=== PATIENT | male | born 1960 | race Caucasian/White ===

== ENCOUNTER 2024-09-19 13:48 | Outpatient (AMB) | payer OTHER, SELFPAY ==
--- NOTE | 2024-09-19 13:54 | MHC.OFFVIS ---
Vital Signs 09/19/24 14:01 Height 5 ft 9 in Weight 246 lb 6 oz BMI 36.4 Intake Visit Reasons: inguinal hernia Intake Note: This patient presents for inguinal hernia assessment. Pt c/o; reports bulge, reports pain, left groin, reports he went to Urgent care about 4-5 months ago to get evaluated for his hernia. Medical Services Manager Required: No Accompanied by: Self / Same As Patient Allergies No Known Allergies Allergy (Verified 09/19/24 14:03) Medication List - Last Reconciled 09/19/24 by Ludwin Tian MD levothyroxine 175 mcg PO DAILY lisinopril 10 mg PO DAILY HPI HPI inguinal hernia: Details: 64-year-old male with obesity, referred for a left inguinal hernia. He says that he has had this mass on his left groin all the way to the scrotum on and off. He had noticed this about 4 months ago but this has been prominent periodically especially when he is standing up. He says that often times reduces when he is lying down in bed He describes discomfort in the area. He has not seen a primary care physician and long time as he has primary care physician retired last year. He went to an urgent care center about 2 months ago and he was referred to me He denies GI complaints. He used to be a smoker but he said he quit about 2 months ago. He is hypertensive as well. [facility] Medical History (Updated 09/19/24 @ 14:12 by Ludwin Tian MD) Morbid obesity Left inguinal hernia Surgical History (Updated 09/19/24 @ 14:03 by GT Ybarra) History of surgical procedure Family History Maternal Uncle Bone cancer Sister Throat cancer Social History Alcohol intake: current Alcohol intake frequency: holidays/special occasions only Patient Tobacco Use Status: Former Tobacco user Review of Systems Const Denies chills and Denies fever(s) Card Denies chest pain, Denies dyspnea and Denies dyspnea on exertion Resp Denies cough, Denies dyspnea and Denies dyspnea on exertion GI Denies hematochezia and Denies change in bowel habits Denies hematuria and Denies difficulty urinating Musc Denies back pain and Denies limited range of motion Neuro Denies focal weakness and Denies convulsions Psych Denies depression and Denies mood swings Physical Exam Vital Signs: BMI result Body Mass Index 36.4 Const Other: Obese General: comfortable and no acute distress Orientation/consciousness: patient oriented x3 Neck Neck: Yes no lymphadenopathy Resp Auscultation: clear to auscultation bilaterally Cardio Rhythm: regular rhythm GI Other: Left inguinoscrotal hernia, partially reducible, nontender, large Palpation (GI): Soft to palpation, nontender and no guarding Neuro General: patient oriented x3 Assessment & Plan Assessment & Plan (1) Left inguinal hernia: Code(s): K40.90 - Unilateral inguinal hernia, without obstruction or gangrene, not specified as recurrent Category: Medical Plan: He has a large left inguino scrotal hernia. He does state that this has been bothering him. He wants to proceed with repair. I had a long discussion with the above about the technique of repair with mesh placement. I reviewed the risks including but not limited to bleeding, infections, injury to other organs including bowel, vas deferens, the testicle, blood clots, pneumonia, recurrence, hematoma, as well as benefits and alternatives. I also reviewed with him what to expect postoperatively He has not seen a primary care physician in over a year. I will arrange for him to be seen by 1 prior to the surgery. I am also scheduling him for a CT scan of the abdomen and pelvis to image this left groin in view of the large size. He seems to understand the plan well. Orders: Orders CT abdomen pelvis wo IV con 09/19/24 K40.90 - Unilateral inguinal hernia, without obstruction or gangrene, not specified as recurrent Coding Level of Care Code New Pt Level 3 (90862) Diagnoses Left inguinal hernia K40.90
[2024-09-19 14:01] VITALS: BMI 36.4
== END 2024-09-19 14:09 | disposition home or self-care (01) ==
LOC: HO.HGS 13:53
PROVIDERS: Visit Provider Surgery
DX: K40.90 Unilateral inguinal hernia, without obstruction or gangrene, not specified as recurrent (principal)
CPT/HCPCS: 99203

== ENCOUNTER 2024-10-03 08:36 | Outpatient (AMB) | payer OTHER, SELFPAY ==
--- NOTE | 2024-10-03 08:50 | A.OFFPC_ITS ---
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 Patient has old PCP is from [facility] who retired in 12/05/2023. Patient reports that he has history of hypertension and hypothyroidism. He has not had blood work done in a while. He has enough medications for both the conditions. He was seen in the surgical office for left abdominal pain and was found to have an inguinal hernia. A CT scan has been scheduled which has not been done yet. Patient is scheduled to have an inguinal hernia repair in the near future. No date for surgery has been set. Patient would like a screening colonoscopy. [facility] Medical History (Updated 10/03/24 @ 09:14 by Tray Schumacher MD) Acquired hypothyroidism Essential hypertension Morbid obesity Left inguinal hernia Surgical History (Updated 09/19/24 @ 14:03 by GT Ybarra) History of surgical procedure Family History (Updated 10/03/24 @ 08:54 by GT Bernard) Maternal Uncle Bone cancer Sister Throat cancer Social History Housing: Condominium Alcohol intake: current Alcohol intake frequency: holidays/special occasions only Alcohol type: beer Patient Tobacco Use Status: Former Tobacco user Tobacco use type: Cigarette e-Cigarette/Vaping Use: Never Used Second Hand Smoke Exposure: No service: No Current occupational status: employed Current occupational exposures/hazards: No Cognitive needs: No Hearing needs: No Vision needs: Yes Questionnaire PHQ-9 Over the last 2 weeks, how often have you been bothered by any of the following problems? 1. Little interest or pleasure in doing things: not at all 2. Feeling down, depressed, or hopeless: not at all 3. Trouble falling or staying asleep, or sleeping too much: not at all 4. Feeling tired or having little energy: not at all 5. Poor appetite or overeating: not at all 6. Feeling bad about yourself - or that you are a failure or have let yourself or your family down: not at all 7. Trouble concentrating on things, such as reading the newspaper or watching television: not at all 8. Moving or speaking so slowly that other people could have noticed. Or the opposite - being so fidgety or restless that you have been moving around a lot more than usual: not at all 9. Thoughts that you would be better off or of hurting yourself in some way: not at all Total score: 0 Depression Screening Interpretation: Negative Depression Screening Done: Yes Source: Developed by Drs. Ede Snowden, Cathleen Briscoe, Eder Long and colleagues, with an educational mj from [employer]. Thrive Questionnaire Date Thrive assessed: 09/26/24 I am a: Patient What is your living situation today?: I have a steady place to live Within the past 12 months, did the food you bought not last and you didn't have the money to get more?: Never true Within the past 12 months, did you worry whether your food would run out before you got money to buy more?: Never true Do you have trouble paying for medicines?: No Do you have trouble getting transportation to medical appointments?: No Do you have trouble paying your heating and electricity bill?: No Do you have trouble taking care of your child, family member or friend?: No Do you have trouble with day-to-day activities such as bathing, preparing meals, shopping, managing finances, etc.?: No Are you currently unemployed and looking for a job?: No Are you interested in more education?: No Please select the resources that you would like help with: None Currently or been in a relationship where the following occur: No concerns reported THRIVE Score: 0 AUDIT C Alcohol Use Questionnaire (AUDIT-C) 1. How often do you have a drink containing alcohol?: Monthly or less 2. How many drinks containing alcohol do you have on a typical day when you are drinking?: 1 or 2 3. How often do you have six or more drinks on one occasion?: Less than monthly Total Score: 2 ALMITA-7 AMB Questionnaire ALMITA-7 Date ALMITA - 7 assessed: 10/03/24 Feeling nervous, anxious, or on edge: 0 = Not at all Not being able to stop or control worryin = Not at all Worrying too much about different things: 0 = Not at all Trouble relaxin = Not at all Being so restless that it is hard to sit still: 0 = Not at all Becoming easily annoyed or irritable: 0 = Not at all Feeling afraid as if something awful might happen: 0 = Not at all Total ALMITA-7 score (0-4 normal; 5-9 mild; 10-14 moderate; 15-21 severe): 0 Source: Developed by Drs. Ede Snowden, Cathleen Briscoe, Eder Long and colleagues, with an educational mj from [employer]. Physical exam (Primary Care) Vital Signs: Last Vital Signs Pulse 78 10/03/24 08:51 BP 128/86 10/03/24 08:51 Pulse Ox 98 10/03/24 08:51 Oxygen Delivery Method Room Air 10/03/24 08:51 BMI result Body Mass Index 36.0 Tobacco/Smoking Status: Tobacco use Status Tobacco use date assessed 10/03/24 10/03/24 08:56 Patient Tobacco Use Status Former Tobacco user 10/03/24 08:54 Tobacco use type Cigarette 10/03/24 08:54 e-Cigarette/Vaping Use Never Used 10/03/24 08:56 PHQ-9: PHQ-9 Score PHQ-9: Total score 0 10/03/24 08:56 Depression Screening Interpretation: Negative Thrive Assessment: Date of Thrive Assessment Date Thrive assessed 09/26/24 10/03/24 08:50 Currently or been in a relationship where the following occur: No concerns reported Const General: cooperative and healthy appearing Nutritional Appearance: well nourished Orientation/consciousness: patient oriented x3 Limitations: no limitations HENMT Head: Yes normal to inspection Eyes General: appearance normal, both eyes and all related structures Neck Neck: Yes normal visual inspection Chest Chest palpation & inspection: normal palpation of entire chest wall Resp Effort & Inspection: normal respiratory effort Neuro General: patient oriented x3 Office Procedures Flu Questionnaire Does the patient have a severe egg allergy?: No Does the patient have severe life threatening allergies?: No Does the patient have a fever or illness today?: No Has the patient ever had Guillain-[place] Syndrome?: No Has the patient ever had any past reaction to a flu shot?: No Immunizations Fluarix Triv [id number] (PF) 45 mcg (15 mcg x 3)/0.5 mL IM syringe Performing Provider: Tray Schumacher MD [facility] Administered by: GT Jarvis on 10/03/24 09:09 Dose Route Admin Location Dispensed Lot Number Expiration Date [place] Grocery Clerk Marking 0.5 mL IM Left Deltoid 0.5 mL [id number] 05/15/25 [id number] [employer] VIS Given Date VIS Provided VIS Publication Date 10/03/24 Single Vaccine 21 Eligibility Eligibility Date Funding Source Not [facility] Eligible 10/03/24 Private Coding Level of Care Code New Pt Level 4 (90295) Complex EM visit Add On G2211 Diagnoses Morbid obesity E66.01 Essential hypertension I10 Acquired hypothyroidism E03.9 Left inguinal hernia K40.90 Assessment & Plan Assessment & Plan (1) Morbid obesity: Code(s): E66.01 - Morbid (severe) obesity due to excess calories Category: Medical Plan: BMI is 36. (2) Essential hypertension: Code(s): I10 - Essential (primary) hypertension Category: Medical Plan: Blood pressure is in range. Continue medications at same dosage. Blood work has been up ordered. Will call with the results. (3) Acquired hypothyroidism: Code(s): E03.9 - Hypothyroidism, unspecified Category: Medical Plan: TSH has been ordered. Based on the results, Synthroid dosage will be adjusted. (4) Left inguinal hernia: Code(s): K40.90 - Unilateral inguinal hernia, without obstruction or gangrene, not specified as recurrent Category: Medical Plan: Patient already has an appointment with the surgeon for an elective surgery. A screening colonoscopy has been ordered. Plan PSA levels will be checked. Orders: Orders Influenza [id number] Immunization Today Z23 - Encounter for immunization
[2024-10-03 08:51] VITALS: BP 128/86; PULSE 78; O2SAT 98; BMI 36.0
== END 2024-10-03 09:11 | disposition home or self-care (01) ==
PROVIDERS: Visit Provider Internal Medicine
DX: I10 Essential (primary) hypertension (principal); E66.01 Morbid (severe) obesity due to excess calories; Z68.36 Body mass index [BMI] 36.0-36.9, adult; E03.9 Hypothyroidism, unspecified; K40.90 Unilateral inguinal hernia, without obstruction or gangrene, not specified as recurrent

== ENCOUNTER → 2024-10-03 08:36 | Outpatient (BNVA) | payer OTHER, SELFPAY | PROVIDERS: Visit Provider Internal Medicine | DX: E66.01 Morbid (severe) obesity due to excess calories (principal); Z68.36 Body mass index [BMI] 36.0-36.9, adult; I10 Essential (primary) hypertension; E03.9 Hypothyroidism, unspecified; K40.90 Unilateral inguinal hernia, without obstruction or gangrene, not specified as recurrent; Z23 Encounter for immunization | CPT/HCPCS: 90471; 90656; 96127 ==

== ENCOUNTER 2024-10-06 10:14 | Outpatient (REF) | payer OTHER, SELFPAY ==
[2024-10-06 13:14] LABS: Appearance Urine Clear; Color Urine Yellow; Glucose Urine UA Negative (Negative); Leukocyte Esterase Urine Negative (Negative); Nitrite Urine Negative (Negative); PH 5.5 (5.0-9.0); Urine Blood Negative (Negative); Urine Ketones Negative (Negative); Urine Protein Negative (Neg-Trace)
[2024-10-06 13:20] LABS: Hemoglobin 14.8 g/dl (14.0-18.0); Mean Corpuscular HGB Conc 34.4 g/dl (31.0-36.0); Mean Corpuscular Hemoglobin 31.6 pg (27.0-33.0); Mean Corpuscular Volume 91.9 fL (80.0-98.0); Platelet Count 328 X10*3/uL (160-400); Red Blood Count 4.68 X10*6/uL (4.60-5.80); Red Cell Distribution Width 13.6 % (11.0-16.0); White Blood Count 9.3 X10*3/uL (4.8-10.8)
[2024-10-06 13:52] LABS: Prostate Specific Antigen Scr 1.37 ng/mL (<0.05-4.0)
[2024-10-06 14:20] LABS: Alanine Aminotransferase 21 U/L (0-40); Albumin Level 3.9 g/dL (3.5-5.0); Anion Gap 12 (12-20); Aspartate Amino Transferase 26 U/L (5-37); Bilirubin Direct 0.1 mg/dL (0.0-0.5); Bilirubin Total 0.4 mg/dL (0.0-1.0); Blood Urea Nitrogen 8 mg/dL (9-16); Calcium 9.5 mg/dL (8.4-10.2); Carbon Dioxide 25 mmol/L (22-29); Chloride 100 mmol/L (96-108); Cholesterol 168 mg/dL (<200); Estimated Glomerular Filt Rate > 60; Glucose Random 94 mg/dL (60-115); HDL Cholesterol 41 mg/dL (>40); LDL Cholesterol Calculated 98 mg/dL (<100); Potassium 4.6 mmol/L (3.3-5.1); Sodium 132 mmol/L (135-145); Total Protein 7.2 g/dL (6.5-8.0); Triglycerides 146 mg/dL (<150)
[2024-10-06 14:24] LABS: Thyroid Stimulating Hormone 6.36 uIU/mL (0.32-4.0)
[2024-10-06 14:35] LABS: Alkaline Phosphatase 66 U/L (39-117)
== END 2024-10-06 10:15 | disposition home or self-care (01) ==
LOC: HO.HMGCLDS 10:14
PROVIDERS: PCP Internal Medicine; Visit Provider Internal Medicine
DX: I10 Essential (primary) hypertension (principal); E03.9 Hypothyroidism, unspecified; Z12.5 Encounter for screening for malignant neoplasm of prostate
CPT/HCPCS: 36415; 80048; 80061; 80076; 81003; 84153; 84443; 85027

== ENCOUNTER 2024-11-14 16:13 | Outpatient (REF) | payer OTHER, SELFPAY ==
--- NOTE | ~2024-11-14 | CT_ITS ---
CLINICAL HISTORY: K40.90 - Unilateral inguinal hernia, without obstruction or gangrene, no... CT abdomen and pelvis without contrast Comparison: None Findings: No consolidation or effusion. The unenhanced liver, spleen, adrenal glands and pancreas are unremarkable. Several gallstones layer dependently within the gallbladder. There are multiple exophytic renal cysts present, the largest on the left measuring up to 4.2 cm. No urinary calculus or obstructive uropathy. Normal appendix. There is diverticulosis without diverticulitis. A segment distal descending colon and sigmoid colon extend into a large left inguinal hernia. No current evidence of incarceration/obstruction. The prostate gland is mildly enlarged. The bladder is decompressed. Moderate diffuse atherosclerotic disease. Impression: Large left inguinal hernia containing descending colon and sigmoid colon. Diverticulosis without diverticulitis. Cholelithiasis without cholecystitis. Atherosclerosis. Additional incidental findings. This document has been electronically signed by: Antonio Sharp MD on 11/16/2024 06:11:30
== END 2024-11-14 16:14 | disposition home or self-care (01) ==
LOC: HO.CT 16:13
PROVIDERS: PCP Internal Medicine; Visit Provider Surgery
DX: K40.90 Unilateral inguinal hernia, without obstruction or gangrene, not specified as recurrent (principal)
CPT/HCPCS: 74176

== ENCOUNTER → 2024-11-14 16:15 | Outpatient (BNV) | payer OTHER, SELFPAY | PROVIDERS: PCP Internal Medicine; Visit Provider Radiology Vascular & Interventional Radiology | DX: K57.30 Diverticulosis of large intestine without perforation or abscess without bleeding (principal); K80.80 Other cholelithiasis without obstruction | CPT/HCPCS: 74176 ==

== ENCOUNTER 2024-11-29 07:03 | Day surgery (SDC) | payer OTHER, SELFPAY ==
[2024-11-25 12:31] VITALS: BMI 36.3
--- NOTE | 2024-11-25 12:41 | P.CONAN_ITS ---
Documented by User: Helen Guerrero NP 11/25/24 12:42 HPI - Anesthesia Eval Consult details Narrative: 64yo M for Left Chronically incarcerated Hernia Inguinal Reducible with mesh PMFSH Active Problems Active Problems: All Active Problems Acquired hypothyroidism (Acute) Essential hypertension (Acute) Morbid obesity (Acute) Left inguinal hernia (Acute) Past Medical History Medical History Acquired hypothyroidism Essential hypertension Morbid obesity Left inguinal hernia Family History Family History Maternal Uncle Bone cancer Sister Throat cancer Surgical History Surgical History H/O arthroscopy of right knee History of surgical procedure Social History Social History Housing: [facility] Alcohol intake: current Alcohol intake frequency: holidays/special occasions only Alcohol type: beer Patient Tobacco Use Status: Former Tobacco user Tobacco use type: Cigarette e-Cigarette/Vaping Use: Never Used Second Hand Smoke Exposure: No Use of substances other than those prescribed or required for medical reasons: No Are you DNR?: No Advance Directives: No Advance Directives Information Provided: Yes Nutrition Risks: No Nutritional Risk Poor oral hygiene: No service: No Current occupational status: employed Current occupational exposures/hazards: No Cognitive needs: No Hearing needs: No Vision needs: Yes Meds Allergies Allergy/AdvReac Type Severity Reaction Status Date / Time No Known Allergies Allergy Verified 10/03/24 09:07 Home Medications ?Medication ?Instructions ?Recorded ?Confirmed ?Last Taken ?Type lisinopril 10 mg tablet 10 mg PO DAILY 09/19/24 11/29/24 11/28/24 History Exam Height,Weight and Vital Signs: Height 5 ft 9 in Weight 111.584 kg Pertinent Lab Results Pertinent Lab Results: Laboratory Tests 10/06/24 10:20 WBC 9.3 Hgb 14.8 Hct 43.0 Plt Count 328 Sodium 132 L Potassium 4.6 Chloride 100 Carbon Dioxide 25 BUN 8 L Creatinine 0.80 Assessment and Plan Assessment Anesthesia Assessment: Chart Reviewed Documented by User: Jesse Henning MD 11/29/24 08:30 PMFSH Past Medical History Medical History Acquired hypothyroidism Essential hypertension Morbid obesity Left inguinal hernia Family History Family History Maternal Uncle Bone cancer Sister Throat cancer Family history of problems with anesthesia: No Surgical History Surgical History H/O arthroscopy of right knee History of surgical procedure History of Problems with Anesthesia: No Social History [facility] Alcohol intake: current Alcohol intake frequency: holidays/special occasions only Alcohol type: beer Patient Tobacco Use Status: Former Tobacco user Tobacco use type: Cigarette e-Cigarette/Vaping Use: Never Used Second Hand Smoke Exposure: No Use of substances other than those prescribed or required for medical reasons: No Are you DNR?: No Advance Directives: No Advance Directives Information Provided: Yes Nutrition Risks: No Nutritional Risk Poor oral hygiene: No service: No Current occupational status: employed Current occupational exposures/hazards: No Cognitive needs: No Hearing needs: No Vision needs: Yes Meds Allergies Allergy/AdvReac Type Severity Reaction Status Date / Time No Known Allergies Allergy Verified 10/03/24 09:07 Home Medications ?Medication ?Instructions ?Recorded ?Confirmed ?Last Taken ?Type lisinopril 10 mg tablet 10 mg PO DAILY 09/19/24 11/29/24 11/28/24 History Assessment and Plan Assessment Anesthesia Assessment: Anesthesia Plan Discussed Final Anesthetic Review Family History of Problems with Anesthesia: No History of Problems with Anesthesia: No NPO: Yes ASA Class: II Final Preanesthetic Review: No Changes in Pt Med Stat, Meds/Allgs Chart Re viewed, Consent Obtained/Reviewed and Anes Risks/Benef Reviewed Patient Risk: Low Procedure Risk: Low Anesthetic Plan Anesthetic Plan: GA Disposition: Standard PACU
[2024-11-29] VITALS (7 sets, daily range): BP systolic 107–129; BP diastolic 67–84; PULSE 62–80; RESP 13–16; TEMP 36.4–36.7; O2SAT 94–97; BMI 35.4
[2024-11-29] MEDS: Lactated Ringers 1,000 ML 100 ML IVCONT (08:30)
--- NOTE | 2024-11-29 08:41 | MHC.SHP ---
Pre-Procedural Eval Section A - 24 Hr Update-Section A only Date of Service: 11/29/24 Section B - Complete if H&P > 30 days Chief Complaint: Unilateral inguinal hernia, without obstruction or Details of Present Illness: He has a large left inguinal scrotal hernia, with bowel loop seen on CT scan, chronically incarcerated, with discomfort Relevant Family History (Specify if Yes): No Relevant Social History: None Present Medications: see Short Stay Collaborative assessment Medical History: Significant History (Obesity, hypertension, hypothyroidism) Allergies: Allergies Allergy/AdvReac Type Severity Reaction Status Date / Time No Known Allergies Allergy Verified 10/03/24 09:07 Review of Systems Sugical H&P ROS: Negative: Constitution, Cardiovascular, Respiratory and Gastrointestinal Exam Surgical H&P Exam: Normal: Heart and Normal: Lungs and Significant Findings: Abdomen (Large inguinal scrotal hernia, chronically incarcerated) Plan Diagnosis/Plan: Unchanged I have reviewed the history and physical and performed a pertinent physical examination on my patient. No changes have occurred unless specified. Time Spent With Patient Time: Total time managing care of this patient today ____ minutes.
--- NOTE | 2024-11-29 10:04 | W.PM.OPN ---
Operative Note Operative Note Date of Service: 11/29/24 Narrative: Preop Diagnosis: Chronically incarcerated left inguinoscrotal hernia Postop diagnosis: The same Procedure: Repair of large chronically incarcerated left inguinal scrotal hernia, with mesh; extensive dissection and lysis of adhesions done Surgeon: Ludwin Tian MD assistant manager/embalmer: SHAAN Verdin The patient is a 64-year-old male with note of a large chronically incarcerated left inguinal hernia. This was noted to contain bowel loops on CT scan. He understood the technique of the planned repair he was aware of the risks, benefits, and alternatives He was brought to the operating room. He was placed in supine position under general anesthesia via endotracheal tube. The left groin area was prepped and draped in the usual sterile fashion. A surgical time-out was done. The patient received cefazolin 2 g IV preoperatively I infiltrated the planned line of incision with lidocaine 1%. I made an incision on the left inguinal area with a blade 15. This carried down through the full-thickness of the skin. Patient was obese and did have large amounts of the subcutaneous fat so a lot of dissection was done to achieve visualization of the external ring. The external oblique was identified. Open this up with electrocautery to enter the inguinal canal. I applied hemostasis on the edges of the external oblique aponeurosis. I did dissection bluntly with the index finger underneath the aponeurosis. The large hernia was seen. I proceeded to gently dissect this from within the inguinal canal to separate this from the rest of the canal borders. Large amounts of fat was noted. We are able to reduce the bowel contents I proceeded to gently dissect the cord contents and he was able to identify the vas deferens and the accompanying vessels. This was protected during the rest of the procedure. I would gently the rest of the hernia contents from the cord. We had to do a lot of dissection and lysis of adhesions done because of the adherent hernia contents. Dissection was done with a combination of Metzenbaum scissors and electrocautery. We were able to separate the hernia contents from the rest of the cord contents and we were able to reduce this to the large defect in the internal ring. I therefore used an extra-large plug he had we positioned this within the internal ring. I secured this to the ring using Prolene 2 sutures to the internal oblique superiorly and medially and the shelving edge of the inguinal meant laterally using the inner leaves of the plug. I then used a flat Prolene mesh to reinforced the rest of the floor. I had to use this large mesh in view of the large size of the hernia defect in the internal ring. We fashioned out a keyhole mesh out of this large 6 x 3 inch Prolene mesh. I positioned this on the floor of the canal. I passed the tails of the keyhole around the internal ring and spermatic cord and secured this together with Prolene 2 sutures. I flattened the he was on the floor and secured this to the shelving edge of the inguinal meant laterally, the internal oblique medially and superiorly as well as the pubic ramus inferomedially using multiple Prolene 2 sutures We copiously irrigated. We observed for hemostasis. Once hemostasis was confirmed, I then proceeded to reapposed the external oblique aponeurosis using Polysorb 2-0 running stitch to re-create the external ring Please note that the external oblique aponeurosis was 10 years in view of the chronic large hernia We observed for hemostasis again. Once hemostasis was confirmed, we irrigated. We closed the thick subcutaneous layer with Polysorb 2-0 simple interrupted sutures. Skin closure was achieved with Polysorb 4-0 subcuticular running sutures. The incision was infiltrated with Marcaine 0.5% for postop analgesia. Dressings were applied. The procedure was completed The patient tolerated the procedure well. There were no immediate complications. Initial and final counts of sponges and instruments were correct. Estimated blood loss was about 25 cc The patient was extubated without difficulty and transferred to the recovery room with stable vital signs.
[2024-11-29] MEDS: HYDROmorphone HCl 0.5 MG/0.5 ML SYRINGE 0.25 MG IVPUSH (10:31)
[2024-11-29] MEDS: Ketorolac Tromethamine 30 MG/ML VIAL IVPUSH (10:32)
== END 2024-11-29 11:38 | disposition home or self-care (01) ==
PROVIDERS: PCP Internal Medicine; Visit Provider Surgery
PROC: (CPT 49507; principal; 2024-11-29 09:00)
DX: K40.30 Unilateral inguinal hernia, with obstruction, without gangrene, not specified as recurrent (principal); K66.0 Peritoneal adhesions (postprocedural) (postinfection); I10 Essential (primary) hypertension; E03.9 Hypothyroidism, unspecified; E66.01 Morbid (severe) obesity due to excess calories; Z68.36 Body mass index [BMI] 36.0-36.9, adult; Z79.899 Other long term (current) drug therapy; Z87.891 Personal history of nicotine dependence
CPT/HCPCS: 49507; 49999; C1781; J0131; J0690; J1100; J1171; J1885; J2003; J2371; J2405; J2704; J2795; J3010

== ENCOUNTER → 2024-11-29 07:03 | Outpatient (BNV) | payer OTHER, SELFPAY | PROVIDERS: PCP Internal Medicine; Visit Provider Surgery | DX: K40.30 Unilateral inguinal hernia, with obstruction, without gangrene, not specified as recurrent (principal) | CPT/HCPCS: 49507 ==

== ENCOUNTER 2024-12-15 10:22 | Outpatient (AMB) | payer OTHER, SELFPAY ==
--- NOTE | 2024-12-15 10:22 | A.OFFVIS_ITS ---
Vital Signs 12/15/24 10:23 Height 5 ft 9 in Weight 234 lb BMI 34.6 Intake Visit Reasons: S/P LIH w/mesh Intake Note: This patient presents for post-op assessment status post Repair of large chronically incarcerated left inguinal scrotal hernia, with mesh; extensive dissection and lysis of adhesions done. Pt c/o; no concerns. Equipment Operation Instructor Required: No Accompanied by: Self / Same As Patient Allergies No Known Allergies Allergy (Verified 12/15/24 10:27) HPI HPI S/P LIH w/mesh: Details: He had undergone repair of a large left inguino scrotal hernia last 12/02/2024. He tolerated procedure well. He says he currently seems to be doing well and denies significant pain. He has no GI complaints. [facility] Medical History Acquired hypothyroidism Essential hypertension Morbid obesity Left inguinal hernia Surgical History History of left inguinal hernia repair (~11/29/24) H/O arthroscopy of right knee History of surgical procedure Family History Maternal Uncle Bone cancer Sister Throat cancer Social History Housing: Condominium Alcohol intake: current Alcohol intake frequency: holidays/special occasions only Alcohol type: beer Patient Tobacco Use Status: Former Tobacco user Tobacco use type: Cigarette e-Cigarette/Vaping Use: Never Used Second Hand Smoke Exposure: No service: No Current occupational status: employed Current occupational exposures/hazards: No Cognitive needs: No Hearing needs: No Vision needs: Yes Review of Systems Const Denies chills and Denies fever(s) Card Denies chest pain Resp Denies cough GI Denies abdominal pain Physical Exam Vital Signs: BMI result Body Mass Index 34.6 Const General: comfortable and no acute distress Nutritional Appearance: obese Resp Effort & Inspection: normal respiratory effort GI Other: Left inguinal hernia repair site is well healed, not infected, repair site intact Palpation (GI): Soft to palpation, not firm, nontender and no guarding Assessment & Plan Assessment & Plan (1) Left inguinal hernia: Code(s): K40.90 - Unilateral inguinal hernia, without obstruction or gangrene, not specified as recurrent Category: Medical Plan: Status post repair of a large inguinal scrotal hernia. He is doing very well. His incision is well healed. The repair site is intact I advised him to avoid any lifting more than 20 lb for at least 3 more weeks. He is at risk for recurrence in view of his morbid obesity . I can see him in the office on a p.r.n. basis. He is happy with the outcome. Coding Level of Care Code Global (95811) Diagnoses Left inguinal hernia K40.90
[2024-12-15 10:23] VITALS: BMI 34.6
== END 2024-12-15 10:36 | disposition home or self-care (01) ==
PROVIDERS: PCP Internal Medicine; Visit Provider Surgery
DX: K40.90 Unilateral inguinal hernia, without obstruction or gangrene, not specified as recurrent (principal)
CPT/HCPCS: 99024

== ENCOUNTER → 2024-12-15 10:22 | Outpatient (BNVA) | payer OTHER, SELFPAY | PROVIDERS: PCP Internal Medicine; Visit Provider Surgery | DX: Z48.815 Encounter for surgical aftercare following surgery on the digestive system (principal); Z98.890 Other specified postprocedural states | CPT/HCPCS: 99212 ==

== ENCOUNTER 2025-03-09 09:31 | Outpatient (AMB) | payer OTHER, SELFPAY ==
--- NOTE | 2025-03-09 09:40 | MHC.PC.OV ---
Vital Signs 03/09/25 09:41 Height 5 ft 9 in Weight 236 lb BMI 34.8 BP 120/80 Blood Pressure Location Lt brachial Position Sitting Pulse 71 Pulse Source Pulse Oximeter Temp 97.3 F Temp Source Temporal Artery Scan Pulse Oximetry (%) 96 Oxygen Delivery Method Room Air Intake Visit Reasons: discuss health concerns Intake Note: Patient is here to follow up on Discuss health concerns. Management Advisor Required: No Field Marketing Specialist: Not Required per policy Accompanied by: Self / Same As Patient Allergies No Known Allergies Allergy (Verified 03/09/25 10:00) Medication List - Last Reconciled 03/09/25 by Jeannette Bright PA-C ibuprofen 600 mg PO Q6H PRN levothyroxine (Synthroid) 200 mcg PO DAILY lisinopril 10 mg PO DAILY Tobacco use date assessed: 03/09/25 Dental Screening Dental Screen Date: 03/09/25 Did you have a dental visit in the last 12 months?: No Did you have a dental problem in the last 6 months where you did not have access to dental care?: No Was dental information given to patient?: No HPI discuss health concerns HPI Details The patient is a 64-year-old male presenting with Right hand joint contracture and erectile dysfunction. He reports a progressive worsening of his right hand over the past year, leading to significant contracture in the fourth and fifth digits, described as increasingly painful. There is no noted history of trauma or injury to the hand. The patient also reports ongoing erectile dysfunction, which is affecting his relationship. He is concerned about potential causes, including medication side effects and testosterone levels. He has underlying conditions managed by levothyroxine, prednisone, and lisinopril, with stable blood pressures noted. Social History - Handedness: Right-handed - Medications: Taking levothyroxine, prednisone, lisinopril [facility] Medical History Acquired hypothyroidism Essential hypertension Morbid obesity Left inguinal hernia Surgical History History of left inguinal hernia repair (~11/29/24) H/O arthroscopy of right knee History of surgical procedure Family History Maternal Uncle Bone cancer Sister Throat cancer Social History (Reviewed 03/09/25 @ 09:40 by JINNY Gray Housing: [facility] Alcohol intake: current Alcohol intake frequency: holidays/special occasions only Alcohol type: beer Patient Tobacco Use Status: Former Tobacco user Tobacco use type: Cigarette e-Cigarette/Vaping Use: Never Used Second Hand Smoke Exposure: Yes service: No Current occupational status: employed Current occupational exposures/hazards: No Cognitive needs: No Hearing needs: No Vision needs: Yes (Glasses) Questionnaire PHQ-9 Over the last 2 weeks, how often have you been bothered by any of the following problems? 1. Little interest or pleasure in doing things: not at all 2. Feeling down, depressed, or hopeless: not at all 3. Trouble falling or staying asleep, or sleeping too much: not at all 4. Feeling tired or having little energy: not at all 5. Poor appetite or overeating: not at all 6. Feeling bad about yourself - or that you are a failure or have let yourself or your family down: not at all 7. Trouble concentrating on things, such as reading the newspaper or watching television: not at all 8. Moving or speaking so slowly that other people could have noticed. Or the opposite - being so fidgety or restless that you have been moving around a lot more than usual: not at all 9. Thoughts that you would be better off or of hurting yourself in some way: not at all Total score: 0 Depression Screening Interpretation: Negative Depression Screening Done: Yes 72653 - PHQ-9 Billing: Yes Source: Developed by Drs. Ede Snowden, Cathleen Briscoe, Eder Long and colleagues, with an educational mj from [employer]. Thrive Questionnaire Date Thrive assessed: 03/09/25 AUDIT C Alcohol Use Questionnaire (AUDIT-C) 1. How often do you have a drink containing alcohol?: Monthly or less 2. How many drinks containing alcohol do you have on a typical day when you are drinking?: 1 or 2 3. How often do you have six or more drinks on one occasion?: Never Total Score: 1 Score Reviewed/Action Taken: No ALMITA-7 AMB Questionnaire ALMITA-7 Date ALMITA - 7 assessed: 03/09/25 Feeling nervous, anxious, or on edge: 0 = Not at all Not being able to stop or control worryin = Not at all Worrying too much about different things: 0 = Not at all Trouble relaxin = Not at all Being so restless that it is hard to sit still: 0 = Not at all Becoming easily annoyed or irritable: 0 = Not at all Feeling afraid as if something awful might happen: 0 = Not at all Total ALMITA-7 score (0-4 normal; 5-9 mild; 10-14 moderate; 15-21 severe): 0 Source: Developed by Drs. Ede Snowden, Cathleen Briscoe, Eder Long and colleagues, with an educational mj from [employer]. ALMITA-7 Assessment Billing ALMITA-7 Assessment Tool: ALMITA-7 Assessment 09384 Review of Systems Const Details: - Musculoskeletal: Reports contracture and pain in the right hand for over a year. - Genitourinary: Reports erectile dysfunction; Denies other urinary issues. Physical exam (Primary Care) Vital Signs: Last Vital Signs Temp 97.3 F 03/09/25 09:41 Pulse 71 03/09/25 09:41 BP 120/80 03/09/25 09:41 Pulse Ox 96 03/09/25 09:41 Oxygen Delivery Method Room Air 03/09/25 09:41 Care Plan Goal for BP management: 130/90 at Goal BMI result Body Mass Index 34.8 Tobacco/Smoking Status: Tobacco use Status Tobacco use date assessed 03/09/25 03/09/25 09:46 Patient Tobacco Use Status Former Tobacco user 03/09/25 09:46 Tobacco use type Cigarette 03/09/25 09:46 e-Cigarette/Vaping Use Never Used 03/09/25 09:46 PHQ-9: PHQ-9 Score PHQ-9: Total score 0 03/09/25 09:46 Depression Screening Interpretation: Negative Thrive Assessment: Date of Thrive Assessment Date Thrive assessed 03/09/25 03/09/25 09:46 Const Other: Appearance: Alert. Oriented X3. No acute distress. Head: Normal external exam. Normocephalic. Atraumatic. Eyes: Pupils are equal, round, and reactive to light. Extraocular movements intact. Conjunctiva and sclera normal. Eyelids normal. Throat: Pharynx normal. Uvula midline. Moist mucous membranes. Neck: Normal inspection. Neck supple. Full range of motion. Cardiovascular: Normal heart rate and rhythm. Heart sound normal. No murmurs noted. Pulses normal throughout. Respiratory: No respiratory distress. Painless inspiration. Breath sounds normal. No wheezes/rales/rhonchi noted. Chest nontender. No accessory muscle usage noted or decreased air movement noted. Back: Full range of motion noted. Skin: Skin warm and dry. Normal skin color. Normal skin turgor. No rashes/lesions/lacerations noted. Extremities: Fourth and fifth right hand digits contracted. Other than the right hand all other extremities exhibit normal range of motion nontender. Coding Level of Care Code Est Pt Level 3 (22060) Complex EM visit Add On G2211 Diagnoses Contracture, right hand M24.541 Erectile dysfunction N52.9 Additional Codes PHQ-9 - 12981 - PHQ-9 Billing: Yes ([id number]) ALMITA-7 Assessment Billing - ALMITA-7 Assessment Tool: ALMITA-7 Assessment 09184 ([id number]) Assessment & Plan Assessment & Plan (1) Contracture, right hand: Code(s): M24.541 - Contracture, right hand Category: Medical Plan: Referral to orthopedics for evaluation of potential surgical intervention will be made, focusing on ligament or tendon release. Recent onset pain complicates this contracture, necessitating specialized orthopedic review. Condition is chronic and stable will continue to monitor. (2) Erectile dysfunction: Code(s): N52.9 - Male erectile dysfunction, unspecified Category: Medical Plan: Blood work for testosterone levels and more will be conducted. Referrals to urology are planned for further assessment if necessary. Treatment options like Cialis or Viagra will be evaluated following test results and urological consultations. Condition is chronic and stable will continue to monitor. Plan Plan Patient was informed and verbally consented to the use of an ambient scribe for clinic note documentation during this visit. 1. Hand Joint Contracture Referral to orthopedics for evaluation of potential surgical intervention will be made, focusing on ligament or tendon release. Recent onset pain complicates this contracture, necessitating specialized orthopedic review. 2. Erectile Dysfunction Blood work for testosterone levels and more will be conducted. Referrals to urology are planned for further assessment if necessary. Treatment options like Cialis or Viagra will be evaluated following test results and urological consultations. I discussed the likely diagnoses of hand joint contracture and erectile dysfunction with the patient. Management for the hand contracture involves referral to orthopedics for possible surgical intervention. For the erectile dysfunction, we will conduct blood work to include evaluating testosterone levels and possibly refer to urology, depending on results. Patient is advised to seek follow-up if orthopedics or urology do not contact him within a month. Orders: Orders Vitamin D 25-OH Total Today Z00.00 - Encounter for general adult medical examination without abnormal findings Comprehensive D[place]el. Panel Fast Today Z00.00 - Encounter for general adult medical examination without abnormal findings Dihydrotestosterone Today N52.9 - Male erectile dysfunction, unspecified Hemoglobin A1c Today Z00.00 - Encounter for general adult medical examination without abnormal findings Lipid Panel Today Z00.00 - Encounter for general adult medical examination without abnormal findings Liver Panel Today Z00.00 - Encounter for general adult medical examination without abnormal findings Magnesium Today Z00.00 - Encounter for general adult medical examination without abnormal findings Testosterone, Total Today Z00.00 - Encounter for general adult medical examination without abnormal findings PSA,Total (Free>4and<10) Today Z00.00 - Encounter for general adult medical examination without abnormal findings Vitamin B12 and Folate Today Z00.00 - Encounter for general adult medical examination without abnormal findings Erythrocyte Sedimentation Rate Today Z00.00 - Encounter for general adult medical examination without abnormal findings Complete Blood Count Auto Diff Today Z00.00 - Encounter for general adult medical examination without abnormal findings DHEA Sulfate Today N52.9 - Male erectile dysfunction, unspecified Referrals Urology Referral N52.9 - Male erectile dysfunction, unspecified Orthopedics Referral M24.541 - Contracture, right hand Patient Instructions: - Schedule and attend referral appointments with orthopedics and urology if they contact within a month. - Complete blood work as instructed, fasting for accurate results. - Keep track of any changes in symptoms or new symptoms. - Contact us if referred specialists do not reach out within the specified time. - Follow instructions provided for blood work, ensuring to fast before testing.
[2025-03-09 09:41] VITALS: BP 120/80; PULSE 71; TEMP 36.3; O2SAT 96; BMI 34.8
== END 2025-03-09 10:12 | disposition home or self-care (01) ==
LOC: HO.HMCH 09:32
PROVIDERS: PCP Internal Medicine; Visit Provider Physician Assistant Medical
DX: M24.541 Contracture, right hand (principal); N52.9 Male erectile dysfunction, unspecified

== ENCOUNTER → 2025-03-09 09:31 | Outpatient (BNVA) | payer OTHER, SELFPAY | PROVIDERS: PCP Internal Medicine; Visit Provider Physician Assistant Medical | DX: M24.541 Contracture, right hand (principal); N52.9 Male erectile dysfunction, unspecified | CPT/HCPCS: 96127; 99212 ==

== ENCOUNTER 2025-03-10 10:52 | Outpatient (REF) | payer OTHER, SELFPAY ==
[2025-03-10 13:23] LABS: MANUAL DIFF FLAG NO
[2025-03-10 13:34] LABS: Basophils Absolute Auto 0.1 X10*3/uL (0.0-0.2); Eosinophils Absolute Auto 0.4 X10*3/uL (0.0-0.4); Eosinophils Percent Auto 4.3 % (0-4); Hemoglobin 15.8 g/dl (14.0-18.0); Imm Gran Abs Auto 0.17 X10*3/uL (0.00-0.03); Imm Gran Pct Auto 1.9 % (0.0-0.4); Lymphocytes Absolute Auto 1.8 X10*3/uL (1.2-4.9); Lymphocytes Percent Auto 20.8 % (20-40); Mean Corpuscular HGB Conc 33.6 g/dl (31.0-36.0); Mean Corpuscular Hemoglobin 31.2 pg (27.0-33.0); Mean Corpuscular Volume 92.9 fL (80.0-98.0); Mean Platelet Volume 10.2 fL (9.4-12.4); Monocytes Absolute Auto 0.8 X10*3/uL (0.1-1.2); Monocytes Percent Auto 8.7 % (2-11); Neutrophils Absolute Auto 5.6 x10*3/uL (2.0-8.3); Neutrophils Percent Auto 63.3 % (45-73); Platelet Count 321 X10*3/uL (160-400); Red Blood Count 5.06 X10*6/uL (4.60-5.80); Red Cell Distribution Width 13.5 % (11.0-16.0); White Blood Count 8.8 X10*3/uL (4.8-10.8)
[2025-03-10 13:46] LABS: Estimated Average Glucose 108 mg/dL; Hemoglobin A1C 147.8972 umol/L; Hemoglobin A1c % 5.4 % (<6.0); Total Hemoglobin (HGBA1C) 4215.1976 umol/L
[2025-03-10 14:03] LABS: Alanine Aminotransferase 26 U/L (0-40); Alkaline Phosphatase 83 U/L (39-117); Anion Gap 11 (12-20); Aspartate Amino Transferase 31 U/L (5-37); Bilirubin Direct 0.2 mg/dL (0.0-0.5); Bilirubin Total 0.5 mg/dL (0.0-1.0); Blood Urea Nitrogen 9 mg/dL (9-16); Calcium 9.8 mg/dL (8.4-10.2); Carbon Dioxide 26 mmol/L (22-29); Chloride 101 mmol/L (96-108); Cholesterol 180 mg/dL (<200); Estimated Glomerular Filt Rate > 60; Glucose Fasting 102 mg/dL (60-99); HDL Cholesterol 44 mg/dL (>40); LDL Cholesterol Calculated 111 mg/dL (<100); Magnesium 2.1 mg/dL (1.6-2.6); PSA,Total (Free>4and<10) 1.61 ng/mL (0.00-4.00); Potassium 4.3 mmol/L (3.3-5.1); Sodium 134 mmol/L (135-145); Total Protein 7.4 g/dL (6.5-8.0); Triglycerides 126 mg/dL (<150)
[2025-03-10 14:18] LABS: Folate 7.9 ng/mL (> or = 4.0); Vitamin B12 282 pg/mL (200-900)
[2025-03-10 14:21] LABS: Vitamin D 25-OH Total 17.3 ng/mL (>30)
[2025-03-10 14:29] LABS: Erythrocyte Sedimentation Rate 8 MM/HR (0-15)
[2025-03-11 07:03] LABS: DHEA Sulfate 44 mcg/dL (20-217)
[2025-03-15 01:52] LABS: Dihydrotestosterone 18 ng/dL (12-65)
[2025-03-15 15:52] LABS: Testosterone, Total 415 ng/dL (250-1100)
== END 2025-03-10 10:53 | disposition home or self-care (01) ==
LOC: HO.HMGCLDS 10:52
PROVIDERS: Visit Provider Physician Assistant Medical
DX: Z00.00 Encounter for general adult medical examination without abnormal findings (principal); N52.9 Male erectile dysfunction, unspecified
CPT/HCPCS: 36415; 80053; 80061; 80076; 82306; 82607; 82627; 82642; 82746; 83036; 83735; 84153; 84403; 85025; 85652

== ENCOUNTER 2025-05-01 09:16 | Outpatient (AMB) | payer OTHER, SELFPAY ==
[2025-05-01 09:18] VITALS: BMI 34.8
--- NOTE | 2025-05-01 09:18 | A.OFFVIS_ITS ---
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 Patient reports he has worsened for the past year. Patient complains of palm numbness as well as right index finger locking. Patient has been managing with Ibuprofen and Tylenol with some releif. Denies any injuries or surgeries to the right hand. 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 Patient states that these contractures have been ongoing for many years, but he has noticed then progressively worsening in his now starting to be very painful if he attempts full extension of the digits. The patient reports that he is interested in any intervention that might give him increased function of his hand, as he does still work and notices significant impediment to his functional capacity. Denies any numbness or tingling in the right hand. No other acute complaints or concerns at this time. [facility] Medical History (Updated 05/01/25 @ 10:01 by SHAAN Garnica) Vitamin D deficiency Hyperlipidemia Contracture, right hand Erectile dysfunction Acquired hypothyroidism Essential hypertension Morbid obesity Left inguinal hernia Surgical History History of left inguinal hernia repair (~11/29/24) H/O arthroscopy of right knee History of surgical procedure Family History Maternal Uncle Bone cancer Sister Throat cancer Social History Housing: Condominium Alcohol intake: current Alcohol intake frequency: holidays/special occasions only Alcohol type: beer Patient Tobacco Use Status: Former Tobacco user Tobacco use type: Cigarette e-Cigarette/Vaping Use: Never Used Second Hand Smoke Exposure: Yes service: No Current occupational status: employed Current occupational exposures/hazards: No Cognitive needs: No Hearing needs: No Vision needs: Yes (Glasses) Review of Systems Const All systems reviewed & are unremarkable except as noted in HPI and below Physical Exam Vital Signs: BMI result Body Mass Index 34.8 Extrem Other: Patient is alert, oriented, and in no acute distress. Neuro: Normal sensation of the tips of all digits of the right hand at this time Vascular: Cap refill brisk Pain: No tenderness to palpation about the nodules or cords noted on the right ring and small fingers or the palm of the right hand Patient does report some discomfort when attempting to fully extend the ring and small fingers of the right hand ROM: Approximately 45 degree contracture of the right ring finger MCP joint and 60 degree contracture of the right small finger MCP joint noted in the office today No contractures of the PIP, DIP joints of these digits No contractures noted of the right thumb, index, middle fingers Skin: There are noted to be multiple Dupuytren's nodules and cords noted of the right hand, with central cords extending past the MCP joints of the right ring and small fingers No lacerations or abrasions. General: No ecchymosis, erythema, or evidence of infection. Psych: Appears grossly normal Affect normal Attitude cooperative Assessment & Plan Assessment & Plan (1) Dupuytren's contracture of right hand: Code(s): M72.0 - Palmar fascial fibromatosis [Dupuytren] Category: Medical Plan 1. Dupuytren's contracture of right ring finger, 45 degrees at MCP joint 2. Dupuytren's contracture of right small finger, 60 degrees at MCP joint Patient is educated about this condition Patient is educated about the treatment options available Patient would like to proceed with surgery I educated the patient about the condition. I discussed both operative and nonoperative treatment options. The patient would like to proceed with surgery. The risks and benefits of operative treatment were discussed with the patient and the patient wishes to proceed with surgery. These risks include, but are not limited to, risk of damage to blood vessels, nerves, tendons, infection, recurrence, incomplete relief of preoperative symptoms, persistent pain, possible need for further surgery, and the risks associated with regional blocks and/or anesthesia. Plan is to take the patient to the operating room at some point in the next few weeks for the following procedures: 1. Right ring and small finger Dupuytren's partial fasciectomy under general anesthesia All of the preoperative paperwork including the consent was discussed today. All of the patient's questions were answered in the clinic today. The patient understands that they will be in contact with our rn surgical to discuss scheduling their procedure. Patient denies diabetes, blood thinners, asthma, heart issues, lung issues, kidney issues, or current smoking. Coding Level of Care Code New Pt Level 4 (83181) Diagnoses Dupuytren's contracture of right hand M72.0
== END 2025-05-01 09:53 | disposition home or self-care (01) ==
LOC: HO.HOS 09:17
PROVIDERS: PCP Internal Medicine
DX: M72.0 Palmar fascial fibromatosis [Dupuytren] (principal)
CPT/HCPCS: 99204

== ENCOUNTER → 2025-05-01 09:16 | Outpatient (BNVA) | payer OTHER, SELFPAY | PROVIDERS: PCP Internal Medicine | DX: M72.0 Palmar fascial fibromatosis [Dupuytren] (principal); M79.641 Pain in right hand | CPT/HCPCS: 99202 ==

== ENCOUNTER 2025-05-24 10:58 | Outpatient (AMB) | payer OTHER, SELFPAY ==
[2025-05-24 11:04] VITALS: BMI 34.8
--- NOTE | 2025-05-24 11:04 | MHC.OFFVIS ---
Vital Signs 05/24/25 11:04 Height 5 ft 9 in Weight 236 lb BMI 34.8 Intake Visit Reasons: Pre-Rt RF & SF Dupuytrens 06/05/25 Intake Note: Israel 65 yr old male presents today for his pre op visit for his right small finger and ring finger dupuytrens that is scheduled on 06/05/25. Allergies No Known Allergies Allergy (Verified 05/24/25 11:08) HPI HPI Pre-Rt RF & SF Dupuytrens 06/05/25: Details: Israel is a 65 year old right hand dominant man who presents to discuss his right hand Dupuytrens contractures. He complains of contractures of his right ring & small fingers. He says this has been present for several years but has been recently worsening, and now causes him pain when trying to fully extend these fingers. He denies any prior treatment options. He denies any numbness or tingling. He denies any contractures of his left hand. 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 [facility] Medical History (Updated 05/24/25 @ 11:12 by Evan Caputo) Arthritis Renal cyst Vitamin D deficiency Hyperlipidemia Contracture, right hand Erectile dysfunction Acquired hypothyroidism Essential hypertension Morbid obesity Left inguinal hernia Surgical History History of left inguinal hernia repair (~11/29/24) H/O arthroscopy of right knee History of surgical procedure Family History Maternal Uncle Bone cancer Sister Throat cancer Social History Housing: Condominium Are you a primary manager respiratory care to a significant other at home: No Do you presently have visiting nurse or other home services: No Alcohol intake: current Alcohol intake frequency: holidays/special occasions only Alcohol type: beer Patient Tobacco Use Status: Former Tobacco user Tobacco use type: Cigarette Years Smoked: 20 e-Cigarette/Vaping Use: Never Used Second Hand Smoke Exposure: Yes service: No Current occupational status: employed Current occupational exposures/hazards: No Cognitive needs: No Hearing needs: No Vision needs: Yes (Glasses) Review of Systems Const All systems reviewed & are unremarkable except as noted in HPI and below Physical Exam Vital Signs: BMI result Body Mass Index 34.8 Const General: cooperative, healthy appearing and no acute distress Orientation/consciousness: patient oriented x3 HEENT Head: Yes normocephalic and Yes atraumatic Eyes EOM: EOMs intact bilaterally Resp Effort & Inspection: normal respiratory effort and able to speak in complete sentences Cardio Jugular venous distension: no JVD Skin General skin exam: turgor normal Rashes: no rashes Neuro General: patient oriented x3 Extrem Other: Evaluation of Right Upper Extremity: The patient is alert, oriented, and in no acute distress Neuro: Median, Ulnar, Radial nerves motor and sensory intact and sensation is normal to the tips of all digits Vascular: Cap refill brisk ROM: He can bring his fingers closed to a fist He can extend his thumb, index and middle fingers Dupuytrens contractures: Ring finger MCP 60/PIP 0 Large central cord extending from mid-palm to the PIP joint of the ring finger Small finger MCP 85/PIP 0 Large central cord extending from mid-palm to the PIP joint of the small finger Skin: No lacerations or abrasions. General: No Ecchymosis. No Erythema or evidence of infection. Psych Appearance: grossly normal Affect: normal affect Attitude: cooperative Assessment & Plan Assessment & Plan (1) Dupuytren's contracture of right hand: Comment: RF & SF Code(s): M72.0 - Palmar fascial fibromatosis [Dupuytren] Category: Medical Plan Assessment & Plan: 1. Right ring finger Dupuytrens contracture MCP 60/PIP 0 2. Right small finger Dupuytrens contracture MCP 85/PIP 0 I educated him about this condition I discussed operative and non-operative treatment options The patient would like to proceed with surgery The risks and benefits of operative treatment were discussed with the patient and the patient wishes to proceed with surgery. These risks include, but are not limited to risk of damage to blood vessels, nerves, tendons, infection, recurrence, incomplete relief of preoperative symptoms, persistent pain, possible need for further surgery and the risks associated with regional blocks and anesthesia. The plan is to take the patient to the operating room sometime on 06/05/25for the following procedures: 1. Right ring finger Dupuytrens partial fasciectomy, under general 2. Right small finger Dupuytrens partial fasciectomy, under general All of the preoperative paperwork including the consent was reviewed today. All the patient's questions were answered. The patient understands that they will be contacted by our [facility] [place] soon to schedule this procedure He denies Diabetes, blood thinners, asthma, heart, lung, kidney issues Scribed for Subha Mckee MD by Evan Caputo, medical billing supervisor, on 05/24/25 at 11:20 AM, EST. Coding Level of Care Code Est Pt Level 4 (08269) Diagnoses Dupuytren's contracture of right hand M72.0
== END 2025-05-24 11:49 | disposition home or self-care (01) ==
LOC: HO.HOS 10:58
PROVIDERS: PCP Internal Medicine; Visit Provider Orthopaedic Surgery
DX: M72.0 Palmar fascial fibromatosis [Dupuytren] (principal)
CPT/HCPCS: 99024

== ENCOUNTER → 2025-05-24 10:58 | Outpatient (BNVA) | payer OTHER, SELFPAY | PROVIDERS: PCP Internal Medicine; Visit Provider Orthopaedic Surgery | DX: M72.0 Palmar fascial fibromatosis [Dupuytren] (principal) | CPT/HCPCS: 99212 ==

== ENCOUNTER 2025-06-02 08:47 | Outpatient (AMB) | payer OTHER, SELFPAY ==
--- NOTE | 2025-06-02 09:04 | MHC.OFFVIS ---
Intake Visit Reasons: ED Intake Note: New patient presents today for initial visit for ED Urology Medication:None Blood Thinner:None Antibiotic Allergies:None Allergies No Known Allergies Allergy (Verified 06/02/25 09:05) Medication List - Last Reconciled 06/02/25 by Fran Ramirez MD cholecalciferol (vitamin D3) 25 mcg PO QAM ibuprofen 600 mg PO Q6H PRN levothyroxine (Synthroid) 200 mcg PO QAM lisinopril 10 mg PO QAM rosuvastatin (Crestor) 10 mg PO BEDTIME HPI Comments Details: 06/02/2025-Israel is a 65-year-old male who is here as a new patient evaluation for erectile dysfunction. The patient has hypertension. History of cigarette use. Currently not smoking. Urinalysis today trace blood. I have discussed reasons for blood in the urine may include but are not limited to kidney stones, cancer in the urinary tract, BPH, or inflammatory conditions of the urinary tract. In review of his chart the patient did have a CAT scan of the abdomen and pelvis on 11/14/2024 bilateral renal cysts no urinary tract stones. History of Present Illness - The patient is a 65-year-old male presenting with erectile dysfunction. - The patient has a history of hypertension and cigarette use, although he is currently not smoking. - A CT scan of the abdomen and pelvis performed on 11/14/24 revealed bilateral renal cysts without urinary tract stones. - The patient reports nocturia, getting up once or twice at night. - Trace hematuria was noted in the urine analysis, with a previous urine sample in September showing no abnormalities. - The patient has not used phosphodiesterase inhibitors like Viagra or Cialis before. - A PSA test conducted in February was normal. Results - CT scan of abdomen and pelvis on 11/14/24: Bilateral renal cysts, no urinary tract stones. - Urine analysis: Trace hematuria noted. - PSA test in February: Normal. Plan -Cialis 5 mg daily, blood work testosterone level, monitor microscopic hematuria consider cystoscopy in the future. Urine sent for cytology. Follow-up in 3 months [facility] Medical History Arthritis Renal cyst Vitamin D deficiency Hyperlipidemia Contracture, right hand Erectile dysfunction Acquired hypothyroidism Essential hypertension Morbid obesity Left inguinal hernia Surgical History History of left inguinal hernia repair (~11/29/24) H/O arthroscopy of right knee History of surgical procedure Family History Maternal Uncle Bone cancer Sister Throat cancer Social History Housing: Condominium Are you a primary daycare assistant to a significant other at home: No Do you presently have visiting nurse or other home services: No Alcohol intake: current Alcohol intake frequency: holidays/special occasions only Alcohol type: beer Patient Tobacco Use Status: Former Tobacco user Tobacco use type: Cigarette Years Smoked: 20 e-Cigarette/Vaping Use: Never Used Second Hand Smoke Exposure: Yes service: No Current occupational status: employed Current occupational exposures/hazards: No Cognitive needs: No Hearing needs: No Vision needs: Yes (Glasses) Review of Systems Const All systems reviewed & are unremarkable except as noted in HPI and below Reports no additional complaints Eyes Reports no additional complaints ENT Reports no additional complaints Card Reports no additional complaints Resp Reports no additional complaints GI Reports no additional complaints Reports as per HPI Musc Reports no additional complaints Skin/Breast Reports system reviewed and no additional complaints, except as documented Neuro Reports no additional complaints Psych Reports no additional complaints Endo Reports no additional complaints Celso/Lymph Reports no additional complaints Aller/Immun Reports no additional complaints Physical Exam Const General: healthy appearing, no acute distress and well developed Nutritional Appearance: overweight Orientation/consciousness: patient oriented x3 HEENT Head: Yes normocephalic and Yes atraumatic Eyes Conjunctivae: conjunctivae normal Neck Neck: Yes normal visual inspection Chest Chest palpation & inspection: normal inspection of the chest Resp Effort & Inspection: normal respiratory effort GI Inspection: Yes normal to inspection Neuro General: patient oriented x3 Psych Appearance: grossly normal Affect: normal affect Assessment & Plan Assessment & Plan (1) Erectile dysfunction: Code(s): N52.9 - Male erectile dysfunction, unspecified Category: Medical Plan Cialis 5 mg daily, blood work testosterone level, monitor microscopic hematuria consider cystoscopy in the future. Urine sent for cytology. Follow-up in 3 months Orders: Orders AMB Urinalysis Automated Today Z13.9 - Encounter for screening, unspecified Testosterone, Free/Total Today N52.9 - Male erectile dysfunction, unspecified Urine Cytology Today N52.9 - Male erectile dysfunction, unspecified Patient Instructions: The patient had an opportunity to ask questions regarding treatment plan. The patient expressed understanding and agreement with the above treatment plan. The patient is aware they should contact our office by phone for worsening of their current condition or the appearance of new symptoms. Compliance is encouraged with any medications and followup testing that is ordered. It is a privilege to be allowed the opportunity to participate in the urologic care of your patient. If you have any questions or concerns regarding treatment for the above conditions please do not hesitate to contact me. The office telephone contact is [phone]. This note is constructed in part using voice recognition software. While every effort has been made to ensure accuracy radiation therapy technician errors may have been included. Yours sincerely, Fran Ramirez MD Scribe Plan - Not visible on output: Patient was informed and verbally consented to the use of an ambient scribe for clinic note documentation during this visit. Coding Level of Care Code New Pt Level 4 (98173) Diagnoses Erectile dysfunction N52.9 IIEF-5 Questionnaire IIEF-5 How do you rate your confidence that you could get and keep an erection?: 1-Very Low When you had erections with sexual stimulation, how often were your erections hard enough for penetration?: A few times (much less than half the time) During sexual intercourse, how often were you able to maintain your erection after your had penetrated(entered) your partner?: A few times (much less than half the time) During sexual intercourse, how difficult was it to maintain your erection to completion of intercourse?: Extremely Difficult When you attempted sexual intercourse, how often was it satisfactory for you?: Almost never/never IIEF-5 Score IIEF-5 Score: 7
== END 2025-06-02 09:45 | disposition home or self-care (01) ==
LOC: HO.HUSH 08:47
PROVIDERS: PCP Internal Medicine; Visit Provider Urology
DX: N52.9 Male erectile dysfunction, unspecified (principal); Z13.9 Encounter for screening, unspecified
CPT/HCPCS: 99204

== ENCOUNTER 2025-06-02 08:47 | Outpatient (REF) | payer OTHER, SELFPAY | END 2025-06-02 08:48 | disposition home or self-care (01) | LOC: HO.LNP 08:47 | PROVIDERS: PCP Internal Medicine; Visit Provider Urology | DX: N52.9 Male erectile dysfunction, unspecified (principal); Z13.9 Encounter for screening, unspecified | CPT/HCPCS: 81003; 88112; 99202 ==

== ENCOUNTER 2025-06-05 06:01 | Day surgery (SDC) | payer OTHER, SELFPAY ==
[2025-05-18 10:09] VITALS: BP 139/94; PULSE 72; RESP 18; O2SAT 97; BMI 34.4
--- NOTE | 2025-05-18 10:21 | P.CONAN_ITS ---
Documented by User: Helen Guerrero NP 05/18/25 10:24 HPI - Anesthesia Eval Consult details Narrative: 65yo M for Right Ring and Small finger Dupuytrens Contracture Release, Partial Fasciotomy - 06/05/25 s/p hernia repair 11/2024 with GA-ETT 7.5 PMFSH Active Problems Active Problems: All Active Problems Dupuytren's contracture of right hand (Acute) Vitamin D deficiency (Acute) Hyperlipidemia (Acute) Contracture, right hand (Acute) Erectile dysfunction (Acute) Acquired hypothyroidism (Acute) Essential hypertension (Acute) Morbid obesity (Acute) Left inguinal hernia (Acute) Past Medical History Medical History Arthritis Renal cyst Vitamin D deficiency Hyperlipidemia Contracture, right hand Erectile dysfunction Acquired hypothyroidism Essential hypertension Morbid obesity Left inguinal hernia Family History Family History Maternal Uncle Bone cancer Sister Throat cancer Family history of problems with anesthesia: No Surgical History Surgical History History of left inguinal hernia repair (~11/29/24) H/O arthroscopy of right knee History of surgical procedure History of Problems with Anesthesia: No Social History Social History Housing: [facility] Are you a primary rn primary care to a significant other at home: No Do you presently have visiting nurse or other home services: No Alcohol intake: current Alcohol intake frequency: holidays/special occasions only Alcohol type: beer Patient Tobacco Use Status: Former Tobacco user Tobacco use type: Cigarette Years Smoked: 20 e-Cigarette/Vaping Use: Never Used Second Hand Smoke Exposure: Yes Use of substances other than those prescribed or required for medical reasons: No Have you been hit, kicked, punched, or otherwise hurt by someone within the past year? If so, by whom?: No Spiritual Healthcare Practices: no Bahai Healthcare Practices: no Cultural Healthcare Practices: no Are you DNR?: No Advance Directives: No (states S.O. is primary contact) Advance Directives Information Provided: Yes (as above noted) Advance Directives on File: No Poor oral hygiene: No service: No Current occupational status: employed Current occupational exposures/hazards: No Cognitive needs: No Hearing needs: No Vision needs: Yes (Glasses) Meds Allergies Allergy/AdvReac Type Severity Reaction Status Date / Time No Known Allergies Allergy Verified 06/02/25 09:05 Home Medications ?Medication ?Instructions ?Recorded ?Confirmed ?Last Taken ?Type cholecalciferol (vitamin D3) 25 25 mcg PO QAM 05/18/25 06/02/25 Unknown History mcg (1,000 unit) capsule levothyroxine 200 mcg tablet 200 mcg PO QAM 05/18/25 0 06/02/25 Unknown History (Synthroid) Exam Height,Weight and Vital Signs: Height 5 ft 9 in Weight 105.687 kg Last Vital Signs Pulse 72 05/18/25 10:09 Resp 18 05/18/25 10:09 BP 139/94 H 05/18/25 10:09 Pulse Ox 97 05/18/25 10:09 O2 Del Method Room Air 05/18/25 10:09 Pertinent Lab Results Pertinent Lab Results: Laboratory Tests 03/10/25 03/10/25 10:54 10:57 WBC 8.8 Hgb 15.8 Hct 47.0 Plt Count 321 Sodium 134 L Potassium 4.3 Chloride 101 Carbon Dioxide 26 BUN 9 Creatinine 0.70 Assessment and Plan Assessment Anesthesia Assessment: Chart Reviewed Final Anesthetic Review Family History of Problems with Anesthesia: No History of Problems with Anesthesia: No Documented by User: Hadley Alford MD 06/05/25 06:56 [facility] Past Medical History Medical History Arthritis Renal cyst Vitamin D deficiency Hyperlipidemia Contracture, right hand Erectile dysfunction Acquired hypothyroidism Essential hypertension Morbid obesity Left inguinal hernia Family History Family History Maternal Uncle Bone cancer Sister Throat cancer Surgical History Surgical History History of left inguinal hernia repair (~11/29/24) H/O arthroscopy of right knee History of surgical procedure Social History Social History [facility]: [facility] Are you a primary rn primary care to a significant other at home: No Do you presently have visiting nurse or other home services: No Alcohol intake: current Alcohol intake frequency: holidays/special occasions only Alcohol type: beer Patient Tobacco Use Status: Former Tobacco user Tobacco use type: Cigarette Years Smoked: 20 e-Cigarette/Vaping Use: Never Used Second Hand Smoke Exposure: Yes Use of substances other than those prescribed or required for medical reasons: No Have you been hit, kicked, punched, or otherwise hurt by someone within the past year? If so, by whom?: No Spiritual Healthcare Practices: no Bahai Healthcare Practices: no Cultural Healthcare Practices: no Are you DNR?: No Advance Directives: No (states S.O. is primary contact) Advance Directives Information Provided: Yes (as above noted) Advance Directives on File: No Poor oral hygiene: No service: No Current occupational status: employed Current occupational exposures/hazards: No Cognitive needs: No Hearing needs: No Vision needs: Yes (Glasses) Meds Allergies Allergy/AdvReac Type Severity Reaction Status Date / Time No Known Allergies Allergy Verified 06/02/25 09:05 Home Medications ?Medication ?Instructions ?Recorded ?Confirmed ?Last Taken ?Type cholecalciferol (vitamin D3) 25 25 mcg PO QAM 05/18/25 06/02/25 Unknown History mcg (1,000 unit) capsule levothyroxine 200 mcg tablet 200 mcg PO QAM 05/18/25 0 06/02/25 Unknown History (Synthroid) Exam Airway Mallampati Class: III TM Dist: >3cm Neck ROM: Full Loose/Missing/Broken Teeth: No Heart: RRR Lungs: CTA B/L Assessment and Plan Assessment Anesthesia Assessment: Anesthesia Plan Discussed Final Anesthetic Review NPO: Yes ASA Class: III Final Preanesthetic Review: No Changes in Pt Med Stat, Meds/Allgs Chart Reviewed, Consent Obtained/Reviewed and Anes Risks/Benef Reviewed Patient Risk: Intermediate Procedure Risk: Low Assessment/Block/Sedation in SS: Assess/Block/Sedation-SS Anesthetic Plan Anesthetic Plan: GA and Regional Block Disposition: Standard PACU
[2025-06-05] VITALS (8 sets, daily range): BP systolic 116–145; BP diastolic 71–92; PULSE 67–79; RESP 13–20; TEMP 36.4–36.9; O2SAT 91–97; BMI 34.3
[2025-06-05] MEDS: Lactated Ringers 1,000 ML 100 ML IVCONT (06:26)
--- NOTE | 2025-06-05 08:02 | MHC.SHP ---
Pre-Procedural Eval Section A - 24 Hr Update-Section A only Date of Service: 06/05/25 The patient is an INPATIENT: No Changes since office visit: No Cold of Flu in the past 2 weeks, No New Medical Problems, No Changes in Medication and No Patient answered all questions The patient has been examined within 24 hours of the surgical procedure. The History & Physical has been completed within 30 days and I have reviewed it.: Yes Section B - Complete if H&P > 30 days Chief Complaint: Contracture, right hand Allergies: Allergies Allergy/AdvReac Type Severity Reaction Status Date / Time No Known Allergies Allergy Verified 06/02/25 09:05 Plan I have reviewed the history and physical and performed a pertinent physical examination on my patient. No changes have occurred unless specified. Time Spent With Patient Time: Total time managing care of this patient today ____ minutes.
--- NOTE | 2025-06-05 08:03 | P.OP_ITS ---
Operative Note Operative Note Date of Service: 06/05/25 Narrative: Preop diagnosis: 1. Right small finger Dupuytren's contracture 2. Right ring finger Dupuytren's contracture Postop diagnosis: Same Procedure: 1. Right small finger Partial Dupuytren's fasciectomy 2. Right ring finger partial Dupuytren's fasciectomy Surgeon: Subha Mckee MD Director [facility]: Anesthesia: General anesthesia plus regional block Findings: Dupuytren's cords extending from the palm to the small finger and another want to the ring finger Implants: None Tourniquet time: 71 minutes EBL: 5.0 ml Specimen: Dupuytren's cords from small and ring fingers submitted separately Drains: None Complications: None Disposition: Brought to the recovery room in stable condition Plan: Follow-up in 10-14 days for wound check, suture removal and to check pathology OT appt on day of f/u to make a custom night spint and to begin OT Indications: The patient is 65 years old with right small finger and right ring finger Dupuytren's contractures . The risks and benefits of operative treatment, including but not limited to risk of damage to blood vessels, nerves, tendons, infection, recurrence, persistent pain or numbness, incomplete resolution of preoperative symptoms, or need for further surgery were discussed with the patient and they wished to proceed with surgery. Procedure: Once consent was obtained patient was brought back to the operating suite and placed in the operating table in a supine position. A regional block was performed by the anesthesia team. Perioperative antibiotics and anesthesia was administered by the anesthesia team. A tourniquet was applied to the proximal aspect of the right upper extremity and the limb was prepped and draped in a standard surgical fashion. The limb was elevated exsanguinated with Esmarch bandage and the tourniquet inflated to 250 mm of mercury for a total tourniquet time of 71 minutes. I made a Marciano type incision extending along the Dupuytren's cord from the mid palm to the DIP flexion crease of the right small finger. The incision was made with a 15. Blade through the skin the subcutaneous tissues. I then carefully dissected down to the level of the Dupuytren's cord beginning at the proximal as pect of the incision. This was done using tenotomy and iris scissors. Care was taken to protect the nearby neurovascular structures. The Dupuytren's cord was cut at its proximal aspect using tenotomy scissors. It was then grasped with an Allis clamp. The Dupuytren's cord was then carefully dissected free in a proximal to distal direction using tenotomy scissors and again taking care to protect the nearby neurovascular structures. Over the proximal phalanx there was a thickened area of the Dupuytren's cord where it then also bisected to pass both radially and ulnarly to just distal to the PIP joint. Careful dissection was made to mobilize this cord from the surrounding skin, bone and flexor tendon sheath with care being taken to protect the neurovascular bundles on either side of the finger. The cord was then removed from the patient and placed on the back table to be sent for histopathology. My attention was then turned to the right small finger Dupuytren's contracture. This digit also had a Dupuytren's cord extending from the palm to about the PIP joint. I made a Marciano incision extending from the PIP joint to the distal mid palmar crease. The incision was made through the skin the subcutaneous tissues using a 15. Blade. I then dissected down to the level of the Dupuytren's cord. I had been able to expose the proximal aspect of the Dupuytren's cord in the palm using the incision for the small finger. This left a skin bridge between the 2 incisions. I carefully mobilized the soft tissues from the Dupuytren's cord in a [id number] direction. Again the Dupuytren's cord was cut at its proximal aspect using tenotomy scissors. This was grasped with an Allis clamp in the Dupuytren's cord was carefully dissected free in a [id number] direction using tenotomy and iris scissors. I was able to pass the Dupuytren's cord beneath the skin bridge. Again we continued our release in a proximal to distal direction releasing the cord from the surrou nding tissues while protecting the neurovascular structures on either side. The cord was dissected free at the distal aspect of the proximal phalanx and placed on the back table to be sent for histopathology. Both the right small finger and the right ring finger were corrected and able to be brought into full extension at the MCP PIP and D IP joints. At this point the tourniquet was deflated and hemostasis obtained with a brief period of local pressure. The wound was copiously irrigated with normal saline. The skin edges were reapproximated with 5-0 Prolene suture. The wound was infiltrated with some 0.25% plain Marcaine for postop pain control and a sterile dressing and volar splint holding the small and ring fingers in extension was applied. The patient appears to have tolerated the procedure well and with no complications. All digits were well vascularized conclusion of the case.
== END 2025-06-05 11:37 | disposition home or self-care (01) ==
PROVIDERS: Visit Provider Orthopaedic Surgery
PROC: (CPT 26045; principal; 2025-06-05 07:30)
PROC: (CPT 26123; 2025-06-05 07:30)
DX: M72.0 Palmar fascial fibromatosis [Dupuytren] (principal); R20.0 Anesthesia of skin; M24.841 Other specific joint derangements of right hand, not elsewhere classified; I10 Essential (primary) hypertension; E55.9 Vitamin D deficiency, unspecified; E78.5 Hyperlipidemia, unspecified; E03.9 Hypothyroidism, unspecified; E66.01 Morbid (severe) obesity due to excess calories; Z68.34 Body mass index [BMI] 34.0-34.9, adult; Z79.899 Other long term (current) drug therapy; Z98.890 Other specified postprocedural states; Z87.891 Personal history of nicotine dependence
CPT/HCPCS: 26123; 26125; 88304; J0131; J0665; J0690; J1100; J2003; J2250; J2405; J2704; J3010

== ENCOUNTER → 2025-06-05 06:01 | Outpatient (BNV) | payer OTHER, SELFPAY | PROVIDERS: Visit Provider Orthopaedic Surgery | DX: M24.541 Contracture, right hand (principal) | CPT/HCPCS: 26123; 26125 ==

== ENCOUNTER 2025-06-19 10:19 | Outpatient (AMB) | payer OTHER, SELFPAY ==
[2025-06-19 10:53] VITALS: BMI 34.4
--- NOTE | 2025-06-19 10:53 | MHC.OFFVIS ---
Vital Signs 06/19/25 10:53 Height 5 ft 9 in Weight 233 lb BMI 34.4 Intake Visit Reasons: PO-Rt RF & SF Dupuytrens 06/05/25 Intake Note: Israel is a 65 year old right hand dominant male who presents today for their first post-operative visit status post right ring finger and small finger Dupuytren's contracture release, DOS: 06/05/[address] Mckee. Patient reports he is doing well, concerned for some tingling at the DIP of this right small finger. Denies any pain. Splint removed in office today. Sutures removed and steri strips applied. Allergies No Known Allergies Allergy (Verified 06/19/25 10:58) HPI HPI PO-Rt RF & SF Dupuytrens 06/05/25: Details: Israel is a 65 year old right hand dominant male who presents today for their first post-operative visit status post right ring finger and small finger Dupuytren's contracture release, DOS: 06/05/[address] Mckee. Patient reports he is doing well, concerned for some tingling at the DIP of this right small finger. Denies any pain. Splint removed in office today. Half of Sutures removed and steri strips applied. FORMERLY [facility], [facility] Medical History Arthritis Renal cyst Vitamin D deficiency Hyperlipidemia Contracture, right hand Erectile dysfunction Acquired hypothyroidism Essential hypertension Morbid obesity Left inguinal hernia Surgical History History of left inguinal hernia repair (~11/29/24) H/O arthroscopy of right knee History of surgical procedure Family History Maternal Uncle Bone cancer Sister Throat cancer Social History Housing: Condominium Are you a primary customer care associate to a significant other at home: No Do you presently have visiting nurse or other home services: No Alcohol intake: current Alcohol intake frequency: holidays/special occasions only Alcohol type: beer Patient Tobacco Use Status: Former Tobacco user Tobacco use type: Cigarette Years Smoked: 20 e-Cigarette/Vaping Use: Never Used Second Hand Smoke Exposure: Yes service: No Current occupational status: employed Current occupational exposures/hazards: No Cognitive needs: No Hearing needs: No Vision needs: Yes (Glasses) Review of Systems Const All systems reviewed & are unremarkable except as noted in HPI and below Physical Exam Vital Signs: BMI result Body Mass Index 34.4 Const General: cooperative, healthy appearing and no acute distress Orientation/consciousness: patient oriented x3 HEENT Head: Yes normocephalic and Yes atraumatic Eyes EOM: EOMs intact bilaterally Resp Effort & Inspection: normal respiratory effort and able to speak in complete sentences Cardio Jugular venous distension: no JVD Skin General skin exam: turgor normal Rashes: no rashes Neuro General: patient oriented x3 Extrem Other: Evaluation of Right Upper Extremity: The patient is alert, oriented, and in no acute distress Neuro: Median, Ulnar, Radial nerves motor and sensory intact and sensation is normal to the tips of all digits Vascular: Cap refill brisk ROM: He can bring his fingers closed to a fist He can extend his thumb, index and middle fingers Dupuytrens contractures: Patient is status post partial Dupuytren's fasciectomy of the ring and small fingers of the right hand Patient is able to nearly get his right hand flat to a table, including with the ring and small fingers Patient has an approximately 5-10 degree extensor lag in the MCP and PIP joints of the digits Skin: Well-approximated incision sites noted of the volar aspect of the ring and small fingers in the area of previous Dupuytren's contracture No lacerations or abrasions. General: No Ecchymosis. No Erythema or evidence of infection. Psych Appearance: grossly normal Affect: normal affect Attitude: cooperative Assessment & Plan Assessment & Plan (1) Dupuytren's contracture of right hand: Comment: RF & SF Code(s): M72.0 - Palmar fascial fibromatosis [Dupuytren] Category: Medical Plan 1. Status post Dupuytren's partial fasciectomy of ring and small fingers of right hand DOS 06/05/2025 Patient appears to be recovering well postoperatively Patient is educated about the typical recovery course At this time, only half of sutures are able to be removed, as there is some concern that the wound is not healed enough yet for full suture removal Dressing is once again placed on the right hand Patient will return in 1 week, anticipate full suture removal at that time Anticipate OT referral for range of motion of the right hand at that time Patient understands this and is amenable to this plan Follow-up next week Coding Level of Care Code Global (18034) Diagnoses Dupuytren's contracture of right hand M72.0
== END 2025-06-19 11:42 | disposition home or self-care (01) ==
LOC: HO.HOS 10:20
PROVIDERS: PCP Internal Medicine
DX: M72.0 Palmar fascial fibromatosis [Dupuytren] (principal)
CPT/HCPCS: 99024

== ENCOUNTER → 2025-06-19 10:19 | Outpatient (BNVA) | payer OTHER, SELFPAY | PROVIDERS: PCP Internal Medicine | DX: M72.0 Palmar fascial fibromatosis [Dupuytren] (principal) | CPT/HCPCS: 99212 ==

== ENCOUNTER 2025-06-26 13:14 | Outpatient (AMB) | payer OTHER, SELFPAY ==
[2025-06-26 13:27] VITALS: BMI 34.4
--- NOTE | 2025-06-26 13:27 | MHC.OFFVIS ---
Vital Signs 06/26/25 13:27 Height 5 ft 9 in Weight 233 lb BMI 34.4 Intake Visit Reasons: PO-Rt RF & SF Dupuytrens 06/05/25 Intake Note: Israel is a 65 year old right hand dominant male who presents today post-operatively status post right ring & right small finger Dupuytrens fasciectomy, DOS:06/05/[address] Mckee. At their last post-operative visit some sutures were removed. Today, patient complains of numbness at the DIP of the right small finger. Patient is no longer taking pain medications. Allergies No Known Allergies Allergy (Verified 06/26/25 13:30) HPI HPI PO-Rt RF & SF Dupuytrens 06/05/25: Details: Israel is a 65 year old right hand dominant male who presents today post-operatively status post right ring & right small finger Dupuytrens fasciectomy, DOS:06/05/[address] Mckee. At their last post-operative visit some sutures were removed. Patient reports that he feels the wounds have healed significantly since previous evaluation, and states he feels that the remaining sutures can be removed today. Patient is no longer taking pain medications. FORMERLY [facility] Medical History Arthritis Renal cyst Vitamin D deficiency Hyperlipidemia Contracture, right hand Erectile dysfunction Acquired hypothyroidism Essential hypertension Morbid obesity Left inguinal hernia Surgical History History of left inguinal hernia repair (~11/29/24) H/O arthroscopy of right knee History of surgical procedure Family History Maternal Uncle Bone cancer Sister Throat cancer Social History Housing: Condominium Are you a primary respiratory care practitioner to a significant other at home: No Do you presently have visiting nurse or other home services: No Alcohol intake: current Alcohol intake frequency: holidays/special occasions only Alcohol type: beer Patient Tobacco Use Status: Former Tobacco user Tobacco use type: Cigarette Years Smoked: 20 e-Cigarette/Vaping Use: Never Used Second Hand Smoke Exposure: Yes service: No Current occupational status: employed Current occupational exposures/hazards: No Cognitive needs: No Hearing needs: No Vision needs: Yes (Glasses) Review of Systems Const All systems reviewed & are unremarkable except as noted in HPI and below Physical Exam Vital Signs: BMI result Body Mass Index 34.4 Const General: cooperative, healthy appearing and no acute distress Orientation/consciousness: patient oriented x3 HEENT Head: Yes normocephalic and Yes atraumatic Eyes EOM: EOMs intact bilaterally Resp Effort & Inspection: normal respiratory effort and able to speak in complete sentences Cardio Jugular venous distension: no JVD Skin General skin exam: turgor normal Rashes: no rashes Neuro General: patient oriented x3 Extrem Other: Evaluation of Right Upper Extremity: The patient is alert, oriented, and in no acute distress Neuro: Median, Ulnar, Radial nerves motor and sensory intact and sensation is normal to the tips of all digits Vascular: Cap refill brisk ROM: He can bring his fingers closed to a fist He can extend his thumb, index and middle fingers Dupuytrens contractures: Patient is status post partial Dupuytren's fasciectomy of the ring and small fingers of the right hand Patient is able to nearly get his right hand flat to a table, including with the ring and small fingers Patient has an approximately 5-10 degree extensor lag in the MCP and PIP joints of the digits Skin: Well-approximated incision sites noted of the volar aspect of the ring and small fingers in the area of previous Dupuytren's contracture No lacerations or abrasions. General: No Ecchymosis. No Erythema or evidence of infection. Psych Appearance: grossly normal Affect: normal affect Attitude: cooperative Assessment & Plan Assessment & Plan (1) Dupuytren's contracture of right hand: Comment: RF & SF Code(s): M72.0 - Palmar fascial fibromatosis [Dupuytren] Category: Medical Plan 1. Status post Dupuytren's partial fasciectomy of ring and small fingers of right hand DOS 06/05/2025 Patient appears to be recovering well postoperatively Patient is educated about the typical recovery course Remaining sutures removed in the office today without issue OT referral placed for custom thermal molded night splint holding the ring and small fingers of the right hand and extension, as well as to work on range of motion of the digits 2 lb weight limit reinforced Patient understands this and is amenable to this plan Follow-up in 3-4 weeks, sooner with any acute concerns Orders: Orders OT Evaluation and Treatment Today M72.0 - Palmar fascial fibromatosis [Dupuytren] Coding Level of Care Code Global (54162) Diagnoses Dupuytren's contracture of right hand M72.0
== END 2025-06-26 13:53 | disposition home or self-care (01) ==
LOC: HO.HOS 13:15
PROVIDERS: PCP Internal Medicine
DX: M72.0 Palmar fascial fibromatosis [Dupuytren] (principal)
CPT/HCPCS: 99024

== ENCOUNTER → 2025-06-26 13:14 | Outpatient (BNVA) | payer OTHER, SELFPAY | PROVIDERS: PCP Internal Medicine | DX: M72.0 Palmar fascial fibromatosis [Dupuytren] (principal); Z98.890 Other specified postprocedural states | CPT/HCPCS: 99212 ==

== ENCOUNTER 2025-07-05 09:00 | Outpatient (RCR) | payer OTHER, SELFPAY ==
--- NOTE | 2025-06-30 09:15 | MHC.OT.EP ---
[facility] Office [address] [phone] F: [phone] F: [phone] Occupational Therapy Plan of Care Patient Name: Israel Syed Date of Evaluation: 06/30/25 Diagnosis: Post-op Dupuytren's Fasciectomy Pain Location: Denies pain Pain Score: 0 Pain Scale Used: Numeric (0 - 10) Assessment: 65 yo male presents post-op right ring and small finger Dupuytren's Fasciectomy 06/05/25. Referred to OT for nighttime ext orthosis and ROM. Today we have fabricated nighttime orthosis w/ ring and small finger extension, he will bring for adjustments as needed. We have also educated on scar management techniques and stretches for improving active range. I anticipate he will do well w/ brief course with goal of self manangement. Frequency and Duration: The patient will be seen 1x/wk for 2 weeks Short Term Goals: see below Site Safety Representative Goals: Full active tip-palm Ind w/ HEP Ind w/ scar management Good follow through w/ HEP Progress to light strengthening Treatment Plan: Therapeutic Exercise Therapeutic Activity Home Exercise Program Splinting Patient Education Edema Control ADL Training MHP Joint Mobilization Soft Tissue Mobilization Nighttime orthosis Electronically Signed By: Cathie Pichardo OTR/L CHT Please Sign and return to therapist. Thank you once again for your referral.
--- NOTE | 2025-07-05 09:22 | MHC.OT.DC ---
[facility] Office [address] [phone] F: [phone] F: [phone] Occupational Therapy Discharge Note Patient Name: Israel Syed Provider: Kamari Ta PA-c Diagnosis: Post-op Dupuytren's Fasciectomy Date of Evaluation: 06/30/25 Date of Discharge: 07/05/25 Treatments to Date: 2 Discharge Status: Achieved Goals Improved Function Independent with HEP Discharge Summary: Israel was referred to OT for post-op Dupuytren's release nighttime orthosis and ROM. He was seen for initial visit and follow up, reports orthosis fitting well and has been wearing at nighttime with comfort. He has good follow through w/ home program and able to achieve tip-palm flexion and full digit extension. Goals met and Ind w/ self management, will call for splint adjustments as needed. Electronically Signed By: REJI Garcia/Arlene CHT Reviewed/agree with student documentation: Therapist: Please Sign and return to therapist, thank you for your referral.
== END 2025-07-05 09:25 | disposition home or self-care (01) ==
LOC: HO.OT 09:00
PROVIDERS: PCP Internal Medicine
DX: M72.0 Palmar fascial fibromatosis [Dupuytren] (principal)
CPT/HCPCS: 29130; 97110; 97165; 97760

== ENCOUNTER 2025-07-21 09:37 | Outpatient (AMB) | payer OTHER, SELFPAY ==
--- NOTE | 2025-07-21 09:55 | MHC.OFFVIS ---
Vital Signs 07/21/25 09:59 Height 5 ft 9 in Weight 230 lb BMI 34.0 Handedness Right Intake Visit Reasons: PO-Rt RF & SF Dupuytrens 06/05/25 Intake Note: Israel is a 65 year old right hand dominant male who presents today post-operatively status post Right Ring & Right Small Finger Dupuytrens Fasciectomy, DOS:06/05/[address] Mckee. On 06/26/25 remaining sutures were removed. An OT referral was placed for range of motion and a custom thermal molded night splint holding the right ring and small fingers. A 2 lb weight limit was reinforced. Patient states he has complete OT and did find it helpful. He still is unable to make a forced full closed fist however he continues doing ROM exercises at home. Allergies No Known Allergies Allergy (Verified 07/21/25 09:58) HPI HPI PO-Rt RF & SF Dupuytrens 06/05/25: Details: Israel is a 65 year old right hand dominant male who presents today post-operatively status post Right Ring & Right Small Finger Dupuytrens Fasciectomy, DOS:06/05/[address] Mckee. On 06/26/25 remaining sutures were removed. An OT referral was placed for range of motion and a custom thermal molded night splint holding the right ring and small fingers. A 2 lb weight limit was reinforced. Patient states he has complete OT and did find it helpful. He still is unable to make a forceful closed fist however he continues doing ROM exercises at home. Patient states that he is able to fully extend the digits of the right hand this time without difficulty [facility] Medical History Arthritis Renal cyst Vitamin D deficiency Hyperlipidemia Contracture, right hand Erectile dysfunction Acquired hypothyroidism Essential hypertension Morbid obesity Left inguinal hernia Surgical History History of left inguinal hernia repair (~11/29/24) H/O arthroscopy of right knee History of surgical procedure Family History Maternal Uncle Bone cancer Sister Throat cancer Social History Housing: Condominium Are you a primary account executive healthcare to a significant other at home: No Do you presently have visiting nurse or other home services: No Alcohol intake: current Alcohol intake frequency: holidays/special occasions only Alcohol type: beer Patient Tobacco Use Status: Former Tobacco user Tobacco use type: Cigarette Years Smoked: 20 e-Cigarette/Vaping Use: Never Used Second Hand Smoke Exposure: Yes service: No Current occupational status: employed Current occupational exposures/hazards: No Cognitive needs: No Hearing needs: No Vision needs: Yes (Glasses) Review of Systems Const All systems reviewed & are unremarkable except as noted in HPI and below Physical Exam Vital Signs: BMI result Body Mass Index 34.0 Const General: cooperative, healthy appearing and no acute distress Orientation/consciousness: patient oriented x3 HEENT Head: Yes normocephalic and Yes atraumatic Eyes EOM: EOMs intact bilaterally Resp Effort & Inspection: normal respiratory effort and able to speak in complete sentences Cardio Jugular venous distension: no JVD Skin General skin exam: turgor normal Rashes: no rashes Neuro General: patient oriented x3 Extrem Other: Evaluation of Right Upper Extremity: The patient is alert, oriented, and in no acute distress Neuro: Median, Ulnar, Radial nerves motor and sensory intact and sensation is normal to the tips of all digits Vascular: Cap refill brisk ROM: He can bring his fingers closed to a fist He can extend his thumb, index and middle fingers Dupuytrens contractures: Patient is status post partial Dupuytren's fasciectomy of the ring and small fingers of the right hand Patient is able to nearly get his right hand flat to a table, including with the ring and small fingers Patient is able to extend all digits of the right hand fully and with no difficulty Skin: Well-approximated incision sites noted of the volar aspect of the ring and small fingers in the area of previous Dupuytren's contracture No lacerations or abrasions. General: No Ecchymosis. No Erythema or evidence of infection. Psych Appearance: grossly normal Affect: normal affect Attitude: cooperative Assessment & Plan Assessment & Plan (1) Dupuytren's contracture of right hand: Comment: RF & SF Code(s): M72.0 - Palmar fascial fibromatosis [Dupuytren] Category: Medical Plan 1. Status post Dupuytren's partial fasciectomy of ring and small fingers of right hand DOS 06/05/2025 Patient appears to be recovering well postoperatively Patient is educated about the typical recovery course Incisions appear well healed, no concerns for infection dehiscence Patient should continue to wear thermal molded night splint for the next 3-4 weeks, remove during the day Patient may slowly increase the weightlifting capacity in his right hand, 5 lb over the next 2 weeks, 10-15 lb over the 2 weeks following, and then resume full normal lifting Patient understands this and is amenable to this plan Follow-up as needed with any acute concerns Coding Level of Care Code Global (72258) Diagnoses Dupuytren's contracture of right hand M72.0
[2025-07-21 09:59] VITALS: BMI 34.0
== END 2025-07-21 10:06 | disposition home or self-care (01) ==
LOC: HO.HOS 09:37
PROVIDERS: PCP Internal Medicine
DX: M72.0 Palmar fascial fibromatosis [Dupuytren] (principal)
CPT/HCPCS: 99024

== ENCOUNTER → 2025-07-21 09:37 | Outpatient (BNVA) | payer OTHER, SELFPAY | PROVIDERS: PCP Internal Medicine | DX: M72.0 Palmar fascial fibromatosis [Dupuytren] (principal) | CPT/HCPCS: 99212 ==